=== PATIENT | female | born 1980 | race Caucasian/White ===

== ENCOUNTER 2016-12-03 17:40 | Emergency (ER) | payer SELFPAY | END 2016-12-03 17:44 | disposition home or self-care (01) | LOC: ER 17:40 | DX: R51 Headache (principal); F17.200 Nicotine dependence, unspecified, uncomplicated; Z91.041 Radiographic dye allergy status; Z88.5 Allergy status to narcotic agent; Z88.8 Allergy status to other drugs, medicaments and biological substances | CPT/HCPCS: 96372; 99284; J1200; J1885; J2550; J2765 ==